=== PATIENT | female | born 1990 | race Caucasian/White ===

== ENCOUNTER 2021-04-06 19:02 | Emergency (ER) | payer OTHER, MEDICAID ==
[~2021-04-06] VITALS: Ht 160 cm; Wt 86.7 kg
[2021-04-06 21:10] LABS: ABSOLUTE BASOPHILS 0.1 thou/uL (0.0-0.2); ABSOLUTE LYMPHOCYTES 2.7 thou/uL (0.8-5.3); ABSOLUTE MONOCYTES 0.5 thou/uL (0.0-1.2); ABSOLUTE NEUTROPHILS 8.4 thou/uL (1.6-8.1); BASOPHILS 0.5 %; EOSINOPHILS 0.4 %; HEMATOCRIT 35.7 % (37.0-47.0); HEMOGLOBIN 12.4 gm/dL (12.0-15.0); LYMPHOCYTES 22.8 %; MCHC 34.8 g/dL (28.0-37.0); MCV 83.3 fL (80.0-100.0); MONOCYTES 4.6 %; MPV 9.2 fl. (7.2-11.1); NUCLEATED RBCS 0 /100WBC; PLATELET COUNT* 209 thou/uL (150-400); POLYS 71.7 %; RBC 4.29 mil/uL (4.20-5.00); RDW-CV 13.8 % (10.5-14.5); WBC 11.7 thou/uL (4.0-11.0)
[2021-04-06 21:19] LABS: CALCIUM 8.1 mg/dL (8.5-10.1); CREATININE 0.6 mg/dL (0.6-1.3); POTASSIUM 3.6 mmol/L (3.5-5.1)
[2021-04-06 21:23] LABS: ALBUMIN 3.6 g/dL (3.4-5.0); TOTAL BILIRUBIN 0.2 mg/dL (<0.1-1.0); TOTAL PROTEIN 7.2 g/dL (6.4-8.2)
[2021-04-06 22:19] VITALS: BP 133/82
--- NOTE | 2021-04-07 09:52 | EKG ---
[place] [address] ELECTROCARDIOGRAM REPORT Name: MAXWELL SCHREIBER Room: [facility]#: [id number] Admission: 04/06/21 Attend Phys: Discharge: 04/06/21 Date of : 86 Date of Service: 04/06/211910 Report #: [id number] THIS REPORT FOR: //name// [facility] ED Test Date: 2021-04-06 Test Time: 19:11:45 Pat Name: MAXWELL WALLS Department: Room: Gender: F Tipple Boss: [place] : 1990 Requested By: Kiara Richardson Order Number: [id number] MD: Kirby Khoury Measurements Intervals [place] Rate: 93 P: 46 WV: 137 QRS: 66 QRSD: 81 T: 0 QT: 342 QTc: 426 Interpretive Statements Sinus rhythm Borderline T wave abnormalities Baseline wander in lead(s) I,II,aVR,aVL,V2 No previous ECG available for comparison Electronically Signed On 04-07-2021 9:52:29 CDT by Kirby Khoury [email or web address] <ELECTRONICALLY SIGNED> By: Kirby Khoury MD, FACC 04/07/21 0952 10 10 Kirby Khoury MD, FAC /EPI
== END 2021-04-06 22:19 | disposition home or self-care (01) ==
LOC: M.ERS 19:02
PROVIDERS: Emergency Medicine
DX: R07.89 Other chest pain (principal); F43.9 Reaction to severe stress, unspecified